=== PATIENT | female | born 1955 | race Caucasian/White ===

== ENCOUNTER 2017-01-06 17:37 | Emergency (ER) | payer OTHER ==
[~2017-01-06] VITALS: Ht 165.1 cm; Wt 78.0 kg
[2017-01-06 17:40] VITALS: Ht 165.1 cm; Wt 78.0 kg
[2017-01-06] MEDS ORDERED: hydrALAzine 20 MG INJ IV ONE (22:00)
[2017-01-06 22:03] LABS: BASOPHILS % 0.4 % (0.0-2.0); EOSINOPHILS # 0.1 10^3/ul (0.0-0.5); EOSINOPHILS % 1.4 % (0.0-7.0); HEMATOCRIT 44.1 % (37.0-47.0); HEMOGLOBIN 15.4 g/dl (12.0-16.0); LYMPHOCYTES # 4.5 10^3/ul (0.8-2.9); LYMPHOCYTES % 44.5 % (15.0-51.0); MEAN CORPUSCULAR HEMOGLOBIN 30.9 pg (29.0-33.0); MEAN CORPUSCULAR HGB CONC 34.9 g/dl (32.0-37.0); MEAN CORPUSCULAR VOLUME 88.4 fl (82.0-101.0); MEAN PLATELET VOLUME 9.5 fl (7.4-10.4); MONOCYTE # 0.5 10^3/ul (0.3-0.9); MONOCYTES % 5.3 % (0.0-11.0); NEUTROPHIL # 4.9 10^3/ul (1.6-7.5); NEUTROPHILS % 48.2 % (39.0-77.0); PLATELET COUNT 306 10^3/UL (140-415); RED BLOOD COUNT 4.99 10^6/ul (4.20-5.40); RED CELL DISTRIBUTION WIDTH 12.1 % (11.5-14.5); WHITE BLOOD COUNT 10.1 10^3/ul (4.8-10.8)
--- NOTE | 2017-01-06 22:26 | RADRPT ---
PROCEDURE: XR Chest. CLINICAL INDICATION: Chest pain. TECHNIQUE: Single frontal view. COMPARISON: None. FINDINGS: There is mild atelectasis at the lung bases. The lungs are otherwise clear. The heart size is normal. There is calcification in the aorta consistent with atherosclerosis. There is no pleural effusion. There is no pneumothorax. IMPRESSION: 1. Mild atelectasis at the lung bases. 2. Atherosclerosis. 3. Otherwise normal chest radiograph. RPTAT: QQ .Arnoldo Powell MD, Date Time Electronically viewed and signed by .Arnoldo Powell MD, on 01/06/2017 22:26 .R/
--- NOTE | 2017-01-06 22:40 | RADRPT ---
PROCEDURE: CT Brain without contrast. CLINICAL INDICATION: Arm numbness. TECHNIQUE: A CT of the brain without contrast was performed utilizing axial sections from the skul l base through the vertex. The patient was scanned without intravenous contrast enhancement. Sagitta l and coronal reformatted images were obtained using the data from the axial images. Total exam DLP is 753.17 mGy-cm. CTDIvol is 40.21 mGy. One or more of the following dose reduction techniques we re used: Automated exposure control, adjustment of the mA and/or kV according to patient size, use o f iterative reconstruction technique. COMPARISON: None available FINDINGS: There is normal larose-white matter differentiation. The ventricles and cisterns are normal. There is no intracranial hemorrhage or space-occupying lesion. There is no skull fracture or lytic lesion. IMPRESSION: 1. Normal noncontrast CT scan of the brain. RPTAT: QQ .Arnoldo Powell MD, MD Date Time Electronically viewed and signed by .Arnoldo Powell MD, on 01/06/2017 22:40 .R/
[2017-01-06 22:43] LABS: ANION GAP 12 (8-16); BLOOD UREA NITROGEN 11 mg/dl (7-20); CALCIUM 11.5 mg/dl (8.4-10.2); CARBON DIOXIDE 29 mmol/L (21-31); CHLORIDE 100 mmol/L (97-110); CREATININE 0.62 mg/dl (0.44-1.00); GLUCOSE 261 mg/dl (70-220); POTASSIUM 4.2 mmol/L (3.5-5.1); SODIUM 137 mmol/L (135-144)
[2017-01-06 23:06] LABS: TROPONIN-I < 0.012 ng/ml (0.00-0.12)
[2017-01-06 23:15] VITALS: BP 134/69; PULSE 72; RESP 18; TEMP 97.3
[2017-01-06] MEDS ORDERED: HYDR-3672 PO (23:26)
--- NOTE | 2017-01-06 23:26 | ERD ---
ER Documentation Chief Complaint Date/Time DATE: 01/06/17 TIME: 23:24 Chief Complaint LEFT ARM, LEG NUMBNESS SINCE FRIDAY, AMBULATING W/ DIFFICULTY, OFF MEDS HPI This is a 61-year-old female comes in with complaints of left arm and leg numbness since Friday. Patient has a history of hypertension and she states that she has been off her meds for a year. Denies any fevers or chills. Denies any focal neurological complaints. Numbness has since resolved. Denies any focal weakness. Denies any other current complaints. Patient has last followed up with PMD 7 months ago. Has not been on hypertensive meds for a year. Denies any chest pain nausea vomiting. Denies any shortness of breath. Denies any other current complaints. ROS All systems reviewed and are negative except as per history of present illness. Allergies Allergies: Coded Allergies: No Known Allergy (Unverified , 01/06/17) PMhx/Soc Medical and Surgical Hx: pt denies Surgical Hx History of Surgery: No Anesthesia Reaction: No Hx Neurological Disorder: No Hx Respiratory Disorders: No Hx Cardiac Disorders: Yes (htn, diabetes) Hx Psychiatric Problems: No Hx Miscellaneous Medical Probl: No Hx Alcohol Use: No Hx Substance Use: No Hx Tobacco Use: No Smoking Status: Never smoker Physical Exam Vitals Vital Signs Date Time Temp Pulse Resp B/P Pulse Ox O2 Delivery O2 Flow Rate FiO2 01/06/17 23:15 97.3 72 18 134/69 99 Room Air 01/06/17 21:59 97.3 82 18 196/85 99 Room Air 01/06/17 17:40 97.3 77 18 218/99 99 Physical Exam Const: [] Head: Atraumatic Eyes: Normal Conjunctiva ENT: Normal External Ears, Nose and Mouth. Neck: Full range of motion..~ No meningismus. Resp: Clear to auscultation bilaterally Cardio: Regular rate and rhythm, no murmurs Abd: Soft, non tender, non distended. Normal bowel sounds Skin: No petechiae or rashes Back: No midline or flank tenderness Ext: No cyanosis, or edema Neur: Awake and alert Psych: Normal Mood and Affect Result Diagram: 01/06/17215101/06/172151 Results 24 hrs Laboratory Tests Test 01/06/17 21:52 White Blood Count 10.110^3/ul Red Blood Count 4.9910^6/ul Hemoglobin 15.4g/dl Hematocrit 44.1% Mean Corpuscular Volume 88.4fl Mean Corpuscular Hemoglobin 30.9pg Mean Corpuscular Hemoglobin Concent 34.9g/dl Red Cell Distribution Width 12.1% Platelet Count 83126^3/UL Mean Platelet Volume 9.5fl Neutrophils % 48.2% Lymphocytes % 44.5% Monocytes % 5.3% Eosinophils % 1.4% Basophils % 0.4% Nucleated Red Blood Cells % 0.0/100WBC Neutrophils # 4.910^3/ul Lymphocytes # 4.510^3/ul Monocytes # 0.510^3/ul Eosinophils # 0.110^3/ul Basophils # 0.010^3/ul Nucleated Red Blood Cells # 0.010^3/ul Sodium Level 137mmol/L Potassium Level 4.2mmol/L Chloride Level 100mmol/L Carbon Dioxide Level 29mmol/L Anion Gap 12 Blood Urea Nitrogen 11mg/dl Creatinine 0.62mg/dl Glucose Level 261mg/dl Calcium Level 11.5mg/dl Troponin I < 0.012ng/ml Current Medications Medications (Trade) Dose Ordered Sig/Kristen Route PRN Reason Start Time Stop Time Status Last Admin Dose Admin Hydralazine HCl (Apresoline) 10 mg ONCE ONCE IV 01/06/17 22:00 01/06/17 22:01 DC 01/06/17 21:56 Procedures/MDM EKG: Rate/Rhythm: [Normal Sinus Rhythm] QRS, ST, T-waves: [No changes consistent w/ acute ischemia] Impression: [No evidence of ischemia or arrhythmia] Chest X-ray 1V Interpreted by me: Soft Tissue: No acute abnormalities Bones: No acute abnormalities Mediastinum/Cardiac Silhouette/Lungs: [No acute abnormalities] CT of the head is negative Patient's blood pressure was elevated (>120/80) but appears stable without evidence of hypertension emergency or urgency. The patient was counseled about the risks of hypertension and urged to pursue outpatient monitoring and therapy within a week with their primary care physician. Departure Diagnosis: Primary Impression: Numbness Condition: Stable KIKI HOLBROOK Jan 06, 2017 23:26
== END 2017-01-06 23:49 | disposition home or self-care (01) ==
LOC: E/R 17:37
DX: R20.0 Anesthesia of skin (principal); I10 Essential (primary) hypertension; E11.9 Type 2 diabetes mellitus without complications
CPT/HCPCS: 36415; 70450; 71010; 80048; 84484; 85025; 93005; 96374; J0360; Z7502

== ENCOUNTER 2017-06-30 12:41 | Emergency (ER) | END 2017-06-30 21:35 | disposition home or self-care (01) ==